=== PATIENT | female | born 1985 | race Caucasian/White ===

== ENCOUNTER 2025-01-13 10:05 | Emergency (ER) | payer OTHER ==
[2025-01-13] MEDS: Ketorolac 30 MG/ML SDV IM ONE (10:42)
[2025-01-13 11:21] LABS: APPEARANCE,URINE CLEAR (CLEAR); GLUCOSE,URINE NEGATIVE (NEGATIVE); OCCULT BLOOD,URINE NEGATIVE (NEGATIVE)
[2025-01-13 11:32] LABS: EPITHELIAL CELLS,URINE FEW /HPF
== END 2025-01-13 11:39 | disposition home or self-care (01) ==
LOC: LB.ED 10:05
DX: S39.012A Strain of muscle, fascia and tendon of lower back, initial encounter (principal); V91.89XA Other injury due to other accident to unspecified watercraft, initial encounter; Y93.19 Activity, other involving water and watercraft
CPT/HCPCS: 71046; 72040; 72070; 72100; 72170; 81001; 96372; 99283; J1885